=== PATIENT | male | born 1960 | race Caucasian/White ===

== ENCOUNTER 2016-06-26 18:23 | Emergency (ER) | payer BC ==
--- NOTE | 2016-06-26 19:17 | EDM.PDOC ---
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 The patient states he was in his usual state of good health prior to these events with no systemic complaints. The patient is right-hand dominant and complains of no pain as he has a history of neuropathy and doesn't have much sensation in the tips of his fingers and toes. The patient denies any issues or injuries the remainder of the fingers of the right hand as well as the proximal right upper extremity. He states he is up-to-date on his tetanus shot and is here for evaluation of the wound. The family tried to find the distal finger and were unable to find it. Review of systems: As per history of present illness and below otherwise all systems reviewed and negative. Past medical history: As per history of present illness and as reviewed below otherwise noncontributory. Surgical history: As per history of present illness and as reviewed below otherwise noncontributory. Social history: No reported history of drug or alcohol abuse. Family history: As per history of present illness and as reviewed below otherwise noncontributory. Physical exam: General: Well-developed well-nourished man who is nontoxic and looks older than stated age. He is hard of hearing. HEENT: Atraumatic, normocephalic, negative for conjunctival pallor or scleral icterus, mucous membranes moist, throat clear, neck supple, nontender, trachea midline. Lungs: Clear to auscultation, breath sounds equal bilaterally, chest nontender. Heart: S1S2, regular rate and rhythm no overt murmurs Abdomen: Soft, nondistended, nontender. NABS Genitourinary: Deferred. Rectal: Deferred. Extremities: Atraumatic except for the right index finger where there is complete amputation/tissue loss of the distal soft tissue phalanx with palpable bone and a small flap of tissue seen but there is no active bleeding. The proximal fingers without tenderness defects or deformities and the remainder of the hand is also without tenderness defects or deformities. Arthritic changes are seen throughout the hand. Pulses are intact. The legs are, negative for cords or calf pain. Neurovascular unremarkable. Neuro: Awake, alert, oriented. Cranial nerves II through XII unremarkable. Cerebellum unremarkable. Motor and sensory unremarkable throughout. Exam nonfocal. Diagnostics: Accu-Chek x-ray of right index finger Therapeutics: Patient refused digital block as well as oral pain medication, Ancef IM Copious irritation, Vaseline gauze and tube gauze will be placed Case was discussed with our hand surgeon and she can see the patient first thing in the morning at clinic and address the finger and created and close the area. Patient and family are aware of this plan proposal but also offered transfer to [facility] in [place] to be seen this evening for repair. The patient and family would rather wait till tomorrow and be seen here locally then to drive to [place]. They are aware that the clinic will call him first thing in the morning to come in and be seen. I will send him home with antibiotics and patient states he has "pain medicines at home". We have done Vaseline gauze and tube gauze dressing to keep the area moist and no advised him on reasons to return to the ER Impression: Amputation of the distal phalynx right index finger Definitive disposition and diagnosis as appropriate pending reevaluation and review of above. 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 Endocrine/Metabolic History: Reports: Diabetes, type II, Other (see below) Other Endocrine/Metabolic History: new onset - Infectious Disease History Infectious Disease History: Reports: None - Past Surgical History HEENT Surgical History: Reports: None Endocrine Surgical History: Reports: None Social & Family History - Family History Family Medical History: Noncontributory Cardiac: Reports: Heart failure, Hypertension Oncologic: Reports: Breast, Lung - Tobacco Use Smoking Status *Q: Never Smoker Second Hand Smoke Exposure: No - Recreational Drug Use Recreational Drug Use: No ED ROS GENERAL - Review of Systems Review Of Systems: ROS reveals no pertinent complaints other than HPI. ED EXAM, SKIN/RASH Exam: See Below (See dictation) Course - Vital Signs Last Recorded V/S: Last Vital Signs Temp 37.1 C 06/26/16 19:19 Pulse 74 06/26/16 19:19 Resp 16 06/26/16 19:19 BP 119/72 06/26/16 19:19 Pulse Ox 95 06/26/16 19:19 - Orders/Labs/Meds Orders: Active Orders 24 hr Category Date Time Status Communication Order [RC] STAT Care 06/26/16 19:09 Active Communication Order [RC] STAT Care 06/26/16 19:22 Active Fingers Second Digit Rt F6 [CR] Stat Exams 06/26/16 19:09 Taken Meds: Medications Discontinued Medications Generic Name Dose Route Start Last Admin Trade Name Freq PRN Reason Stop Dose Admin Cefazolin Sodium 1 gm 06/26/16 19:19 Ancef IM 06/26/16 19:20 ONETIME ONE Sterile Water 2.5 ml 06/26/16 19:31 Sterile Water For Injection INJECT 06/26/16 19:32 ONETIME ONE Departure - Departure Time of Disposition: 19:42 Disposition: Home, Self-Care 01 Condition: good Clinical Impression: Partial traumatic transphalangeal amputation of right index finger Qualifiers: Encounter type: initial encounter Qualified Code(s): S68.620A - Partial traumatic transphalangeal amputation of right index finger, initial encounter Forms: ED Department Discharge Additional Instructions: The following information is given to patients seen in the emergency department who are being discharged to home. This information is to outline your options for follow-up care. We provide all patients seen in our emergency department with a follow-up referral. The need for follow-up, as well as the timing and circumstances, are variable depending upon the specifics of your emergency department visit. If you don't have a primary care physician on staff, we will provide you with a referral. We always advise you to contact your personal physician following an emergency department visit to inform them of the circumstance of the visit and for follow-up with them and/or the need for any referrals to a consulting specialist. The emergency department will also refer you to a specialist when appropriate. This referral assures that you have the opportunity for followup care with a specialist. All of these measure are taken in an effort to provide you with optimal care, which includes your followup. Under all circumstances we always encourage you to contact your private physician who remains a resource for coordinating your care. When calling for followup care, please make the office aware that this follow-up is from your recent emergency room visit. If for any reason you are refused follow-up, please contact the [facility] emergency department at and ask to speak to the emergency department charge nurse. [facility] [address] [address] You'll be contacted tomorrow morning by 's nurse to come into the clinic and have the repair performed. Please take antibiotics and pain medications that you have at home as needed. Return to ER sooner as needed as discussed. Do not remove dressing that was placed here in the ER into your seen in the clinic. - My Orders Last 24 Hours: My Active Orders 06/26/16 19:09 Communication Order [RC] STAT Fingers Second Digit Rt F6 [CR] Stat 06/26/16 19:22 Communication Order [RC] STAT - Assessment/Plan Last 24 Hours: My Active Orders 06/26/16 19:09 Communication Order [RC] STAT Fingers Second Digit Rt F6 [CR] Stat 06/26/16 19:22 Communication Order [RC] STAT
[2016-06-26] MEDS ORDERED: ceFAZolin 1 GM Vial IM ONE (19:19)
[2016-06-26] MEDS ORDERED: Water For Injection, Sterile 20 ML SDV INJECT ONE (19:31)
[2016-06-26 21:26] VITALS: BP 142/85
--- NOTE | 2016-06-27 10:23 | CR ---
EXAM DATE: 06/26/16 PATIENT'S AGE: 56 Patient: ANA LOERA Facility: [place], [place] Site . Site : 1960 Study: XRay Extremity Right FINGER 2ND DIGIT [id number]/12/2017 7:32:56 PM Ordering Physician: Timbo Posey Final Report: HISTORY: Trauma, crush injury, pain. FINDINGS: Three views of the left 2nd digit demonstrate amputation of the distal finger soft tissues as well bone at the proximal metaphysis of the distal phalanx. The articular surface is preserved. IMPRESSION: Amputation through the proximal metaphysis of the distal phalanx of the 2nd digit. Dictated by Khloe Caban MD @ 06/26/2016 7:40:39 PM Dictated by: Khloe Caban MD @ 06/26/2016 19:40:55 (Electronic Signature) Report Signed by Proxy and Original Signed Document filed in the Medical Record. MARIELA
== END 2016-06-26 19:52 | disposition home or self-care (01) ==
LOC: MW.ED 18:23
DX: S68.620A Partial traumatic transphalangeal amputation of right index finger, initial encounter (principal); E11.9 Type 2 diabetes mellitus without complications; W23.0XXA Caught, crushed, jammed, or pinched between moving objects, initial encounter
CPT/HCPCS: 73140; 82962; 96372; 99283; J0690